=== PATIENT | female | born 1980 | race Caucasian/White ===

== ENCOUNTER 2017-05-04 23:08 | Emergency (ER) | payer OTHER ==
[~2017-05-04] VITALS: Ht 160 cm; Wt 52.6 kg
[2017-05-04 23:25] VITALS: BP 121/83
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
[2017-05-04] MEDS ORDERED: TDAP [DIPH/PERTUSSIS/TET] 0.5 ML VIAL IM ONE ×3 (23:30→23:45)
[2017-05-04] MEDS ORDERED: LIDOCAINE 2% 20 ML MDV ONE (23:31)
--- NOTE | 2017-05-05 00:06 | NUR ---
PAC VINEET AT BEDSIDE FOR LAC REPAIR.
--- NOTE | 2017-05-05 00:25 | NUR ---
PAC AT VINEET SPEAKING TO PT REGARDING RESULTS.
--- NOTE | 2017-05-05 00:34 | NUR ---
Patient discharged to home in stable condition. Written and verbal after care instructions given. Patient verbalizes understanding of instruction. ambulatory with a steady gait
== END 2017-05-05 00:36 | disposition home or self-care (01) ==
LOC: ER 23:13
DX: S61.211A Laceration without foreign body of left index finger without damage to nail, initial encounter (principal); Z23 Encounter for immunization; W26.8XXA Contact with other sharp object(s), not elsewhere classified, initial encounter; Y93.89 Activity, other specified; Y92.89 Other specified places as the place of occurrence of the external cause; Y99.8 Other external cause status
CPT/HCPCS: 12001; 90471; 99283; A4606; A6402; J3490; Z7610; 90715

== ENCOUNTER 2017-05-06 07:18 | Emergency (ER) | payer OTHER ==
[~2017-05-06] VITALS: Ht 160 cm; Wt 52.6 kg
[2017-05-06 07:18] VITALS: BP 109/68
== END 2017-05-06 08:09 | disposition home or self-care (01) ==
LOC: ER 07:19
DX: S61.211D Laceration without foreign body of left index finger without damage to nail, subsequent encounter (principal); B00.1 Herpesviral vesicular dermatitis; X58.XXXD Exposure to other specified factors, subsequent encounter
CPT/HCPCS: 99283; A4606; Z7610

== ENCOUNTER 2019-12-30 12:53 | Emergency (ER) | payer OTHER ==
[~2019-12-30] VITALS: Ht 152.4 cm; Wt 58.1 kg
[2019-12-30 13:28] LABS: APPEARANCE,URINE Clear (CLEAR); BASOPHILS # (AUTO) 0.1 /CMM (0.0-0.2); BASOPHILS % (AUTO) 0.7 % (0.0-2.0); BILIRUBIN,URINE Negative (NEGATIVE); BLOOD, URINE Large Ery/uL (NEGATIVE); COLOR,URINE Amber (YELLOW); EOSINOPHILS % (AUTO) 0.7 % (0.0-6.0); HEMATOCRIT 40 % (33-45); HEMOGLOBIN 13.1 g/dL (11.5-14.8); KETONES,URINE Negative (NEGATIVE); LEUKOCYTE ESTERASE ,URINE Trace (NEGATIVE); LYMPHOCYTES # (AUTO) 2.2 /CMM (0.8-4.8); LYMPHOCYTES % (AUTO) 23.9 % (20.0-44.0); MEAN CORPUSCULAR HGB CONC 33 g/dl (31.0-36.0); MEAN CORPUSCULAR VOLUME 84 fL (82-100); MONOCYTES # (AUTO) 0.6 /CMM (0.1-1.30); MONOCYTES % (AUTO) 6.3 % (2.0-12.0); NEUTROPHILS # (AUTO) 6.3 /CMM (1.8-8.9); NEUTROPHILS % (AUTO) 68.4 % (43.0-81.0); NITRITE, URINE Negative (NEGATIVE); PH,URINE 8.5 (5.0-8.0); PLATELET COUNT (AUTO) 277 /CMM (150-450); PROTEIN,URINE 30 mg/dl (NEGATIVE); RED BLOOD CELL COUNT(AUTO) 4.78 MIL/uL (4.0-5.2); UGLUCOSE Negative (NEGATIVE); UROBILINOGEN,URINE 0.2 EU/dL (0.2); WHITE BLOOD COUNT (AUTO) 9.2 K/uL (4.3-11.0)
[2019-12-30 13:38] LABS: CREATININE 0.7 mg/dL (0.6-1.3); POTASSIUM 3.8 mmol/L (3.5-5.1)
[2019-12-30 13:45] LABS: BACTERIA,URINE Few /HPF (None Seen); RBC,URINE 21-50 /HPF (0-2); SQUAMOUS EPITHELIAL CELL,UR Few /HPF (None Seen)
--- NOTE | 2019-12-30 14:30 | NUR ---
Ultrasound at Bedside
--- NOTE | 2019-12-30 15:58 | NUR ---
NO active Bleeding at this time Patient discharged to home in stable condition. Written and verbal after care instructions given. Patient verbalizes understanding of instruction.
[2019-12-30 15:59] VITALS: BP 101/76
== END 2019-12-30 16:01 | disposition home or self-care (01) ==
LOC: ER 12:56
DX: O20.0 Threatened abortion (principal)
CPT/HCPCS: 36415; 76856-TC; 80048-TC; 81000-TC; 84702-TC; 85025-TC; 86850-TC; 87086-TC